=== PATIENT | female | born 1960 | race Caucasian/White ===

== ENCOUNTER 2016-11-22 14:13 | Emergency (ER) | payer BC ==
--- NOTE | 2016-11-22 14:27 | EDPHY ---
H & P Time Seen by Provider: 11/22/16 14:21 HPI/ROS: CHIEF COMPLAINT: Right wrist pain HISTORY OF PRESENT ILLNESS: Patient is a 56-year-old female who slipped on a rock at the beginning of her hike and fell on an outstretched right hand. She felt a crack. She denies elbow shoulder or neck or head injury. She denies any other injuries. She has a history of arthritis and mild bradycardia. No coronary artery disease, no pulmonary disease. REVIEW OF SYSTEMS: Constitutional: denies: chills, fever, recent illness, recent injury EENTM: denies: blurred vision, double vision, nose congestion Respiratory: denies: cough, shortness of breath Cardiac: denies: chest pain, irregular heart rate, lightheadedness, palpitations Gastrointestinal/Abdominal: denies: abdominal pain, diarrhea, nausea, vomiting, blood streaked stools Genitourinary: denies: dysuria, frequency, hematuria, pain Musculoskeletal: See HPI Skin: denies: lesions, rash, jaundice, bruising Neurological: denies: headache, numbness, paresthesia, tingling, dizziness, weakness Hematologic/Lymphatic: denies: blood clots, easy bleeding, easy bruising Immunologic/allergic: denies: HIV/AIDS, transplant EXAM: GENERAL: Well-appearing, well-nourished and in no acute distress. HEAD: Atraumatic, normocephalic. EYES: Pupils equal round and reactive to light, extraocular movements intact, sclera anicteric, conjunctiva are normal. ENT: TMs normal, nares patent, oropharynx clear without exudates. Moist mucous membranes. NECK: Normal range of motion, supple without lymphadenopathy or JVD. LUNGS: Breath sounds clear to auscultation bilaterally and equal. No wheezes rales or rhonchi. HEART: Regular rate and rhythm without murmurs, rubs or gallops. ABDOMEN: Soft, nontender, normoactive bowel sounds. No guarding, no rebound. No masses appreciated. BACK: No CVA tenderness, no spinal tenderness, step-offs or deformities EXTREMITIES: Dinner fork deformity to right forearm. Normal range of motion in fingers and elbow. Wrist limited by pain. Normal pulses and capillary refill distally. Normal sensation. NEUROLOGICAL: Cranial nerves II through XII grossly intact. Normal speech, normal gait. 5/5 strength, normal movement in all extremities, normal sensation PSYCH: Normal mood, normal affect. SKIN: Warm, dry, normal turgor, no visible rashes or lesions. Source: Patient, EMS Exam Limitations: No limitations - Medical/Surgical History Hx Asthma: No Hx Chronic Respiratory Disease: No Hx Diabetes: No Hx Cardiac Disease: No Hx Renal Disease: No Hx Cirrhosis: No Hx Alcoholism: No Other PMH: Arthritis, mild bradycardia , hysterectomy - Family History Significant Family History: No pertinent family hx - Social History Alcohol Use: Sober Drug Use: None Constitutional: Initial Vital Signs Temperature (C) 36.5 C 11/22/16 14:13 Heart Rate 54 L 11/22/16 14:13 Respiratory Rate 16 11/22/16 14:13 Blood Pressure 124/69 H 11/22/16 14:13 O2 Sat (%) 96 11/22/16 14:13 O2 Delivery Mode Nasal Cannula O2 (L/minute) 1 Allergies/Adverse Reactions: No Known Allergies Allergy (Verified 11/22/16 14:32) Home Medications: Medication Instructions Recorded Hydrocodone/APAP 5/325 [[place] 1 - 2 tab PO Q4H PRN #10 tab 11/22/16 5/325 (RX)] Hydroxychloroquine Sulfate 11/22/16 Ondansetron Odt [Zofran Odt 4 mg 4 mg PO Q4 PRN #20 tab 11/22/16 (RX)] Medical Decision Making - Diagnostics Imaging Results: Imaging Impressions Wrist X-Ray 11/22/16 14:25 Impression: Comminuted angulated fracture of the distal radius with dorsal angulation and possible intra-articular extension. Mildly displaced ulnar styloid fracture. X-ray: Right wrist x-ray was obtained. I viewed the images myself on the PACS system. My interpretation of the images is: Positive for displaced distal radius fracture and ulnar styloid fracture. The radiologist interpretation is pending. Imaging: I viewed and interpreted images myself Procedures: Procedure: Procedural sedation. Indication: Fracture reduction. A pre-sedation evaluation was completed on the patient just prior to the procedure. Patient is an appropriate candidate for procedural sedation with a normal 3-3-2 rule assessment and a Mallampati airway score of class 1. The risks of the sedation were discussed including but not limited to dysrhythmia, need for airway intervention or general anesthesia, disability, ; and verbal consent obtained. A timeout was observed and patient's identity confirmed. The patient was sedated with 50 mg propofol and 10 mg of ketamine. The patient was monitored with continuous pulse oximetry, capnography, and panel monitor. There were no complications and no significant hypoxemia. I remained at the bedside for the sedation. The total time I spent in the procedural sedation was 16 minutes. Fracture reduction: Patient's wrist was successfully reduced with procedural sedation and utilization of a C-arm. Splint was placed. Procedure: Splint placement. A right wrist splint was applied. After application of the splint I returned and re-examined the patient. The splint was adequately immobilizing the joint and distal to the splint the patient's circulation and sensation was intact. ED Course/Re-evaluation: Patient tolerated the procedure well. Alignment achieved on C-arm imaging. Patient is traveling from [place]. She will follow up with her orthopedist there. Differential Diagnosis: Partial list of the Differential diagnosis considered include but were not limited to; wrist fracture, dislocation, vascular injury and although unlikely based on the history and physical exam, I also considered nerve injury, neck injury, head injury. I discussed these differential diagnoses and the plan with the patient as well as the usual and expected course. The patient understands that the diagnosis is provisional and that in medicine we are not always correct and that further workup is often warranted. Usual and customary warnings were given. All of the patient's questions were answered. The patient was instructed to return to the emergency department should the symptoms at all worsen or return, otherwise to followup with the physician as we discussed. - Data Points Medications Given: Discontinued Medications Hydromorphone HCl (Dilaudid) 1 mg IVP EDNOW ONE Stop: 11/22/16 14:38 Last Admin: 11/22/16 14:40 Dose: 1 mg Ketamine HCl (Ketamine) 10 mg IVP EDNOW ONE Stop: 11/22/16 15:32 Last Admin: 11/22/16 14:55 Dose: 10 mg Ondansetron HCl (Zofran Odt 4 Mg Prepack#2) 1 btl TAKEHOME EDNOW ONE Stop: 11/22/16 16:51 Last Admin: 11/22/16 17:20 Dose: 1 btl Propofol (Diprivan) 50 mg IVP EDNOW ONE Stop: 11/22/16 15:32 Last Admin: 11/22/16 14:55 Dose: 50 mg Departure - Departure Disposition: Home, Routine, Self-Care Clinical Impression: Wrist fracture, right Qualifiers: Encounter type: initial encounter Fracture type: closed Qualified Code(s): S62.101A - Fracture of unspecified carpal bone, right wrist, initial encounter for closed fracture Condition: Fair Instructions: Wrist Fracture in Adults (ED) Referrals: Tayo Foley MD [Medical Doctor] - As per Instructions Prescriptions: Hydrocodone/APAP 5/325 [[place] 5/325 (RX)] 1 - 2 tab PO Q4H PRN #10 tab PRN Reason: Pain, Moderate Ondansetron Odt [Zofran Odt 4 mg (RX)] 4 mg PO Q4 PRN #20 tab PRN Reason: Nausea & Vomiting
[2016-11-22] MEDS ORDERED: HYDROmorphONE/DILAUDID 1 MG/ML SYR IVP ONE (14:37)
[2016-11-22 14:39] VITALS: TEMP 97.7
[2016-11-22] MEDS ORDERED: PROPOFOL 200 MG/20 ML VIAL ONE (14:47)
[2016-11-22] MEDS ORDERED: KETAMINE 100 MG/10 ML SYR ONE (14:51)
[2016-11-22] MEDS: KETAMINE 100 MG/10 ML SYR IVP ONE ×2 (14:55→15:33)
[2016-11-22] MEDS ORDERED: PROPOFOL 200 MG/20 ML VIAL IVP ONE (15:31)
[2016-11-22 15:38] VITALS: O2SAT 99
[2016-11-22 15:40] VITALS: RESP 14
[2016-11-22] MEDS ORDERED: ONDANSETRON 4 MG/2 ML VIAL ONE (16:06)
[2016-11-22] MEDS ORDERED: ONDANSETRON 4MG PREPACK#2 BTL TAKEHOME ONE (16:50)
[2016-11-22] MEDS ORDERED: ONDANSETRON DISINTEGRATING 4 MG TAB ONE (16:53)
[2016-11-22 17:10] VITALS: BP 115/75; PULSE 55
== END 2016-11-22 17:43 | disposition home or self-care (01) ==
DX: S52.611A Displaced fracture of right ulna styloid process, initial encounter for closed fracture (principal); S52.501A Unspecified fracture of the lower end of right radius, initial encounter for closed fracture; W01.0XXA Fall on same level from slipping, tripping and stumbling without subsequent striking against object, initial encounter; Y93.01 Activity, walking, marching and hiking
CPT/HCPCS: 96374; J2405; J2704; L3980